=== PATIENT | female | born 2000 | race Two or more races ===

== ENCOUNTER 2024-09-30 14:28 | Emergency (ER) | payer MEDICAID, OTHER ==
[~2024-09-30] VITALS: Ht 167.6 cm; Wt 166.3 kg
--- NOTE | 2024-09-30 15:33 | ED.PDOC ---
History of Present Illness HPI Comments 24F presents to the ER w/ no prior Hx associated to the c/c of ear obstruction. Pt reports on getting a "ball stuck in my ear", yesterday morning. Denies chills, fever, N/V/D, SOB, CP or other associated symptoms, modifiers, or recent injuries at this time. Chief Complaint: Foreign Body Time Seen by MD: 15:25 Primary Care Provider: none Reviewed Notes: Nurses Notes, Medications, Allergies Allergies: Coded Allergies: NO KNOWN ALLERGIES (Unverified , 09/30/24) Information Source: Patient Mode of Arrival: Ambulatory Severity: Moderate Timing: Hours Duration: Since onset, Hours Prehospital treatment: None Past Medical History PAST MEDICAL HISTORY: Denies Surgical History: Denies all surgeries NEWS CONTENT SPECIALIST History: No Pertinent NEWS CONTENT SPECIALIST History Family History Family History: Reviewed,noncontributory to illness, Unknown Social History Smoker: Non-Smoker Alcohol: Denies ETOH Use Drugs: Denies Drug Use Lives In: Home Constitutional: reports: others ("ball stuck in ear"); denies: chills, diaphoresis, fatigue, fever, malaise, sweats, weakness EENTM: denies: blurred vision, double vision, ear bleeding, ear discharge, ear drainage, ear pain, ear ringing, eye pain, eye redness, hearing loss, mouth pain, mouth swelling, nasal discharge, nose bleeding, nose congestion, nose pain, photophobia, tearing, throat pain, throat swelling, voice changes, others Respiratory: denies: cough, hemoptysis, orthopnea, SOB at rest, shortness of breath, SOB with excertion, stridor, wheezing, others Cardiovascular: denies: chest pain, dizzy spells, diaphoresis, Dyspnea on exertion, edema, irregular heart beat, left arm pain, lightheadedness, palpitations, PND, syncope, others Gastrointestinal: denies: abdomen distended, abdominal pain, blood streaked bowels, constipated, diarrhea, dysphagia, difficulty swallowing, hematemesis, melena, nausea, poor appetite, poor fluid intake, rectal bleeding, rectal pain, vomiting, others Genitourinary: denies: abnormal vagina bleeding, burning, dyspareunia, dysuria, flank pain, frequency, hematuria, incontinence, pain, , vagina discharge, urgency, others Neurological: denies: dizziness, fainting, headache, left sided numbness, left sided weakness, numbness, paresthesia, pre-existing deficit, right sided numbness, right sided weakness, seizure, speech problems, tingling, tremors, weakness, others Musculoskeletal: denies: back pain, gout, joint pain, joint swelling, muscle pain, muscle stiffness, neck pain, others Integumetry: denies: bruises, change in color, change in hair/nails, dryness, laceration, lesions, lumps, rash, wounds, others Allergic/Immunocompromised: denies: Difficulty Healing, Frequent Infections, Hives, Itching, others Hematologic/Lymphatic: denies: anemia, blood clots, easy bleeding, easy bruising, swollen glands, others Endocrine: denies: excessive hunger, excessive sweating, excessive thirst, excessive urination, flushing, intolerance to cold, intolerance to heat, unexplained weight gain, unexplained weight loss, others Psychiatric: denies: anxiety, bipolar disorder, depression, hopeless, panic disorder, schizophrenia, sleepless, suicidal, others All Other Systems: Reviewed and Negative Physical Exam General Appearance: Mild Distress, Normal HEENT: Normal ENT Inspection, Pharynx Normal, TMs Normal Neck: Full Range of Motion, Non-Tender, Normal, Normal Inspection Respiratory: Chest Non-Tender, Lungs Clear, No Accessory Muscle Use, No Respiratory Distress, Normal Breath Sounds Cardiovascular: No Edema, No JVD, No Murmur, No Gallop, Normal Peripheral Pulses, Regular Rate/Rhythm Breast Exam: Deferred Gastrointestinal: No Organomegaly, Non Tender, No Pulsatile Mass, Normal Bowel Sounds, Soft Genitalia: Deferred Pelvic: Deferred Rectal: Deferred Extremities: No calf tenderness, Normal capillary refill, Normal inspection, Normal range of motion, Non-tender, No pedal edema Musculoskeletal : Apperance: Normal Neurologic: Alert, oral surgeon II-XII nml as Tested, No Motor Deficits, Normal Affect, Normal Mood, No Sensory Deficits Cerebellar Function: Normal Reflexes: Normal Skin: Dry, Normal Color, Warm Peripheral Pulses: 3+ Radial (R), 3+ Radial (L) Lymphatic: No Adenopathy Was a procedure done? Was a procedure done?: No Differential Dx Considerations may include: Foreign body Wax X-Ray, Labs, Meds, VS Vital Signs Date Time Temp Pulse Resp B/P (MAP) Pulse Ox O2 Delivery O2 Flow Rate FiO2 11/10/24 15:34 98.1 80 16 124/72 (89) 99 98.1 09/30/24 15:34 80 16 99 Room Air 09/30/24 14:55 98.9 83 20 155/98 (117) 97 Patient alert. Came in because his possible cotton in her right ear. Vitals stable. Answering all questions. Examined the right ear does not show any foreign body. Was able to flush the wax. Patient states that she is feeling much better. Explained to the patient the procedure. Was told to follow up with her primary care physician. Was told to come back if there is any problem. Time of 1ST Reevaluation: 16:06 Reevaluation 1ST: Improved Patient Education/Counseling: Diagnosis, Treatment, Prognosis Family Education/Counseling: No Family Present Departure 1 Departure Time of Disposition: 16:10 Impression: Primary Impression: Foreign body sensation in ear canal Disposition: 01 HOME / SELF CARE / HOMELESS Condition: Good Discharged With: Self Critical Care Note Critical Care Time?: No Stability Stability form required: No Heart Score Heart Score: Heart Score Response (Comments) Value History N/A 0 EKG N/A 0 Age N/A 0 Risk Factors N/A 0 Troponin N/A 0 Total 0 I personally scribed for VERONIKA NINO MD ([email or web address]) on 09/30/24 at 15:33. Electronically submitted by Oneil Rockwell ([email or web address]). VERONIKA NINO MD Sep 30, 2024 15:33
[2024-09-30 15:34] VITALS: BP 124/72; PULSE 80; RESP 16; TEMP 98.1; O2SAT 99
== END 2024-09-30 16:29 | disposition home or self-care (01) ==
LOC: ER 14:28
DX: S00.451A Superficial foreign body of right ear, initial encounter (principal); X58.XXXA Exposure to other specified factors, initial encounter; Y93.89 Activity, other specified; Y92.89 Other specified places as the place of occurrence of the external cause; Y99.8 Other external cause status

== ENCOUNTER 2025-02-04 15:29 | Inpatient (IN) | payer MEDICAID ==
[~2025-02-04] VITALS: Ht 170.2 cm; Wt 163.6 kg
--- NOTE | 2025-02-04 15:39 | ED.PDOC ---
HPI Comments 24 y.o female presents to the ED via EMS for a chief complaint of left sided chest pain associated with nausea that started 3 weeks ago. Patient reports pain is intermittent, described as sharp and rating a 10/10 when presented this morning. Patient reports upon ED arrival, pain presented once again, now rating a 7/10 and is non radiating. Patient denies any SOB, fever, chills, nausea, vomiting, leg swelling or calf pain. She admits to marijuana and alcohol use, but none recently. She denies any medical, surgical history or allergies. Chief Complaint: Chest Pain Time Seen by MD: 15:31 Primary Care Provider: none Reviewed Notes: Nurses Notes, Medications, Allergies Allergies: Coded Allergies: NO KNOWN ALLERGIES (Unverified , 09/30/24) Information Source: Patient, Emergency Med Personnel Mode of Arrival: EMS Severity: Moderate Timing: Weeks (3) Duration: Intermittent Prehospital treatment: 12 Lead EKG, Accucheck (128), Aquaculture Farm Manager Location: Chest (L) Radiation: No Radiation Quality: Sharp Onset: At Rest Cardiac Risk Factors: None PE Risk Factors: None History of: None Modifying Factors: Nothing Associated Signs and Symptoms: N/V (nausea only ) Past Medical History PAST MEDICAL HISTORY: Denies Surgical History: Denies all surgeries ELECTRIC WELDER History: No Pertinent ELECTRIC WELDER History Family History Family History: Family hx of DM Social History Smoker: Non-Smoker Alcohol: Occasionally Drugs: Marijuana Lives In: Home Constitutional: denies: chills, diaphoresis, fatigue, fever, malaise, sweats, weakness, others EENTM: denies: blurred vision, double vision, ear bleeding, ear discharge, ear drainage, ear pain, ear ringing, eye pain, eye redness, hearing loss, mouth pain, mouth swelling, nasal discharge, nose bleeding, nose congestion, nose pain, photophobia, tearing, throat pain, throat swelling, voice changes, others Respiratory: denies: cough, hemoptysis, orthopnea, SOB at rest, shortness of breath, SOB with excertion, stridor, wheezing, others Cardiovascular: reports: chest pain; denies: dizzy spells, diaphoresis, Dyspnea on exertion, edema, irregular heart beat, left arm pain, lightheadedness, palpitations, PND, syncope, others Gastrointestinal: reports: nausea; denies: abdomen distended, abdominal pain, blood streaked bowels, constipated, diarrhea, dysphagia, difficulty swallowing, hematemesis, melena, poor appetite, poor fluid intake, rectal bleeding, rectal pain, vomiting, others Genitourinary: denies: abnormal vagina bleeding, burning, dyspareunia, dysuria, flank pain, frequency, hematuria, incontinence, pain, , vagina discharge, urgency, others Neurological: denies: dizziness, fainting, headache, left sided numbness, left sided weakness, numbness, paresthesia, pre-existing deficit, right sided numbness, right sided weakness, seizure, speech problems, tingling, tremors, weakness, others Musculoskeletal: denies: back pain, gout, joint pain, joint swelling, muscle pain, muscle stiffness, neck pain, others Integumetry: denies: bruises, change in color, change in hair/nails, dryness, laceration, lesions, lumps, rash, wounds, others Allergic/Immunocompromised: denies: Difficulty Healing, Frequent Infections, Hives, Itching, others Hematologic/Lymphatic: denies: anemia, blood clots, easy bleeding, easy bruising, swollen glands, others Endocrine: denies: excessive hunger, excessive sweating, excessive thirst, excessive urination, flushing, intolerance to cold, intolerance to heat, unexplained weight gain, unexplained weight loss, others Psychiatric: denies: anxiety, bipolar disorder, depression, hopeless, panic disorder, schizophrenia, sleepless, suicidal, others All Other Systems: Reviewed and Negative Physical Exam General Appearance: Moderate Distress, Obese HEENT: Normal ENT Inspection, Pharynx Normal, TMs Normal Neck: Full Range of Motion, Non-Tender, Normal, Normal Inspection Respiratory: Chest Non-Tender, Lungs Clear, No Accessory Muscle Use, No Respiratory Distress, Normal Breath Sounds Cardiovascular: No Edema, No JVD, No Murmur, No Gallop, Normal Peripheral Pulses, Regular Rate/Rhythm Breast Exam: Deferred Gastrointestinal: No Organomegaly, Non Tender, No Pulsatile Mass, Normal Bowel Sounds, Soft Genitalia: Deferred Pelvic: Deferred Rectal: Deferred Extremities: No calf tenderness, Normal capillary refill, Normal inspection, Normal range of motion, Non-tender, No pedal edema Musculoskeletal : Apperance: Normal Neurologic: Alert, tissue rewinder II-XII nml as Tested, No Motor Deficits, Normal Affect, Normal Mood, No Sensory Deficits Cerebellar Function: Normal Reflexes: Normal Skin: Dry, Normal Color, Warm Lymphatic: No Adenopathy EKG EKG : Pulse Rate (adult): 85 [place]: Normal Cardiac Rhythm: NSR ST: Nonsp Was a procedure done? Was a procedure done?: No CP Differential Dx Differential Diagnosis: N/A Differential Diagnosis: Angina, Chest Wall Pain, Cholelithiasis, Costochondritis, Esophageal reflux/spasm, Gastritis, Pericarditis X-Ray, Labs, Meds, VS Vital Signs Date Time Temp Pulse Resp B/P (MAP) Pulse Ox O2 Delivery O2 Flow Rate FiO2 02/04/25 15:42 89 02/04/25 15:36 98.3 85 20 153/100 (117) 99 98.3 Lab Test 02/04/25 16:32 02/04/25 15:35 Range/Units Troponin I High Sensitivity < 3 L < 3 L </=34 ng/L White Blood Count 6.5 4.4-10.8 10^3/uL Red Blood Count 4.40 4.0-5.20 10^6/uL Hemoglobin 13.6 12.2-16.2 g/dL Hematocrit 39.7 36.0-46.0 % Mean Corpuscular Volume 90.2 80.0-100.0 fL Mean Corpuscular Hemoglobin 31.0 28.0-32.0 pg Mean Corpuscular Hemoglobin Concent 34.3 32.0-36.0 g/dL Red Cell Distribution Width 13.2 11.8-14.3 % Platelet Count 299 140-450 10^3/uL Mean Platelet Volume 8.6 6.9-10.8 fL Neutrophils (%) (Auto) 61.7 37.0-80.0 % Lymphocytes (%) (Auto) 28.3 10.0-50.0 % Monocytes (%) (Auto) 7.8 0.0-12.0 % Eosinophils (%) (Auto) 1.2 0.0-7.0 % Basophils (%) (Auto) 1.0 0.0-2.0 % Neutrophils # (Auto) 4.0 1.6-8.6 10 ^3/uL Lymphocytes # (Auto) 1.8 0.4-5.4 10 ^3/uL Monocytes # (Auto) 0.5 0-1.3 10 ^3/uL Eosinophils # (Auto) 0.1 0-0.8 10 ^3/uL Basophils # (Auto) 0.1 0-0.2 10 ^3/uL Nucleated Red Blood Cells 0.1 % D-Dimer, Quantitative 0.41 0.0-0.49 mg/L FEU Sodium Level 138 136-145 mmol/L Potassium Level 4.3 3.5-5.1 mmol/L Chloride Level 104 98-107 mmol/L Carbon Dioxide Level 26 20-31 mmol/L Anion Gap 8 5-15 Blood Urea Nitrogen 12 9-23 mg/dL Creatinine 1.00 0.550-1.02 mg/dL Glomerular Filtration Rate Calc 80 >90 mL/min BUN/Creatinine Ratio 12.0 10.0-20.0 Serum Glucose 96 74-106 mg/dL Calcium Level 9.3 8.7-10.4 mg/dL Chest x-ray IMPRESSION: 1. Normal chest x-ray. The patient's CBC is within normal limits The chemistry panel is within normal limits The D-dimer is within normal limits At this time, the patient is being admitted to the hospitalist The patient continues to have persistent chest pain Images Reviewed?: Images reviewed and evaluated by me Time of 1ST Reevaluation: 15:36 Reevaluation 1ST: Unchanged Patient Education/Counseling: Diagnosis, Treatment, Prognosis Family Education/Counseling: No Family Present Departure 1 Departure Time of Disposition: 18:34 Impression: Primary Impression: Acute chest pain Additional Impression: Acute coronary syndrome Disposition: ADMITTED INPATIENT [facility]mit to: [facility] Condition: Fair Critical Care Note Critical Care Time?: No Stability Stability form required: Yes Unstable for transfer: Telemetry monitoring (Telemetry monitoring required), ED Physician Assesment (Clinical assesment) Heart Score Heart Score: Heart Score Response (Comments) Value History Slightly Suspicious 0 EKG Normal 0 Age <45 0 Risk Factors No known risk factors 0 Troponin Normal limit 0 Total 0 I personally scribed for DON PARSONS MD ([email or web address]) on 02/04/25 at 15:39. Electronically submitted by Sandra Weaver ([email or web address]). I personally scribed for DON PARSONS MD ([email or web address]) on 02/04/25 at 18:16. Electronically submitted by Sandra Weaver ([email or web address]). DON PARSONS MD Feb 04, 2025 15:39
[2025-02-04 15:58] LABS: Basophils # (auto) 0.1 10 ^3/uL (0-0.2); Eosinophils # (auto) 0.1 10 ^3/uL (0-0.8); Eosinophils % (auto) 1.2 % (0.0-7.0); Hematocrit 39.7 % (36.0-46.0); Hemoglobin 13.6 g/dL (12.2-16.2); Lymphocytes # (auto) 1.8 10 ^3/uL (0.4-5.4); Lymphocytes % (auto) 28.3 % (10.0-50.0); Mean Corpuscular Hgb Conc. 34.3 g/dL (32.0-36.0); Mean Corpuscular Volume 90.2 fL (80.0-100.0); Monocytes # (auto) 0.5 10 ^3/uL (0-1.3); Monocytes % (auto) 7.8 % (0.0-12.0); Neutrophils % (auto) 61.7 % (37.0-80.0); Nucleated Red Blood Cells % 0.1 %; Platelet Count (auto) 299 10^3/uL (140-450); Red Cell Distribution Width 13.2 % (11.8-14.3); White Blood Cell 6.5 10^3/uL (4.4-10.8)
[2025-02-04 16:08] LABS: Chloride 104 mmol/L (98-107); Potassium 4.3 mmol/L (3.5-5.1); Sodium 138 mmol/L (136-145)
[2025-02-04 16:09] LABS: Anion Gap 8 (5-15); Calcium 9.3 mg/dL (8.7-10.4); Carbon Dioxide 26 mmol/L (20-31)
[2025-02-04 16:14] LABS: Blood Urea Nitrogen 12 mg/dL (9-23); Glucose 96 mg/dL (74-106)
--- NOTE | 2025-02-04 16:24 | DVH ---
Chest x-ray Technique: AP portable CLINICAL INDICATION: Chest pain FINDINGS: Heart size is normal. No infiltrates or effusions. No bony thoracic abnormalities. IMPRESSION: 1. Normal chest x-ray.
[2025-02-04] MEDS ORDERED: MELATONIN 5 MG TAB PO PRN (21:00)
[2025-02-04] MEDS ORDERED: ACETAMINOPHEN 325 MG TAB PO PRN (21:00)
[2025-02-04] MEDS ORDERED: ONDANSETRON HCL 4 MG/2 ML VIAL IV PRN (21:00)
[2025-02-04] MEDS ORDERED: HYDROcodone-ACET 5/325MG TAB PO PRN (21:00)
[2025-02-04] MEDS ORDERED: MORPHINE SULFATE INJ 2 MG/ml SYRG IV PRN (21:15)
[2025-02-04] MEDS ORDERED: hydrALAZINE HCL 20 MG/ML VL IV PRN (21:15)
[2025-02-04] MEDS ORDERED: NITROGLYCERIN 0.4 MG SL TAB SL PRN (21:15)
[2025-02-04] MEDS: ASPirin 81 mg TAB PO ONE (23:48)
[2025-02-04] MEDS: ATORVASTATIN 20 MG TAB PO SCH (23:48)
[2025-02-04] MEDS: FAMOTIDINE 20 MG TAB PO SCH (23:48)
[2025-02-05] VITALS (8 sets, daily range): BP systolic 113–146; BP diastolic 53–90; PULSE 61–78; RESP 16–20; TEMP 98–98.6; O2SAT 95–100
--- NOTE | 2025-02-05 00:43 | DVHHP2 ---
Admitting Diagnosis: Chest pain rule out ACS History of Present Illness History Source: Patient Exam Limitations: No limitations HPI Ms. Yael Cárdenas is a 24 y.o female with no reported medical history who presents with a chief complaint of left sided chest pain associated with nausea that started 3 weeks ago. Patient reports pain is intermittent, described as sharp and rating a 10/10 when presented this morning. . Patient denies any SOB, fever, chills, nausea, vomiting, leg swelling or calf pain. Patient endorses she has a history of anxiety disorder when she was 14 and was told she was bipolar, was taking medications which she stopped taking on her own. Patient reports she has had insomnia issues as well but has changed her diet and started exercising and has been sleeping better. Patient reports palpitations along with chest pain and a burning sensation. Patient states her watch read her heart rate in the 130's briefly and then was down to the 90-100's . Patient currently denies any chest pain, palpitations, SI, dyspnea. Patient admitted for further evaluation and treatment. Home Meds No Active Prescriptions or Reported Meds Past Medical History Cardiac: No pertinent Hx Pulmonary: No pertinent Hx Central Nervous System: No pertinent Hx GI: No pertinent Hx Hemotology/Oncology: No pertinent Hx Hepatobiliary: No pertinent Hx Psychiatric: Anxiety, Bipolar, Other (insominia) Musculoskeletal: No pertinent Hx Rheumotologic: No pertinent Hx Infectious Disease: No peritnent Hx ENT: No pertinent Hx Renal/: No pertinent Hx Endocrine: No pertinent Hx Dermatology: No pertinent Hx Smoker: Quit (x 2months ago) Alocohol: Occassional Drugs: Marijuana Domestic Violence: Neg Review of Systems Constitutional: No symptom reported Ears, Nose, & Throat: No symptom reported Eyes: No symptom reported Pulmonary/Respiratory: No symptom reported Cardiovascular: Chest Pain, Palpitations Gastrointestinal: No symptom reported Genitourinary: No symptom reported Musculoskeletal: No symptom reported Skin: No symptom reported Psychiatric: No symptom reported Endocrine: No symptom reported Hemotologic/Lymphatic: No symptom reported H&P Exam Vital Signs Vital Signs Date Time Temp Pulse Resp B/P (MAP) Pulse Ox O2 Delivery O2 Flow Rate FiO2 02/04/25 18:35 85 02/04/25 15:36 98.3 20 153/100 (117) 99 98.3 General Appeara: Well developed, Well nourished, Normal Appearance Head Exam: Normal inspection Neck Exam: Normal inspection, Non-tender, Normal alignment Eye Exam: bilateral eye Normal inspection, bilateral eye PERRL, bilateral eye EOMI Ear Exam: bilateral ear Auricle normal Nasal Exam: Normal inspection Mouth: Normal Inspection Pulmonary/Respiratory: Normal inspection, Normal breath sounds, Chest non- tender, Lungs clear Cardiovascular/Chest: Normal inspection, Regular rate, Normal Rhythm Peripheral Pulses: 2+ dorsalis pedis (R), 2+ dorsalis pedis (L), 2+ Radial (R), 2+ Radial (L) Abdominal Exam: Normal bowel sounds, Soft, No tenderness Rectal Exam: Deferred Pelvic Exam: Not done PULVERIZER FEEDER Exam: Normal hearing, Normal speech, PERRL Neuro/Mental St: Alert, Oriented Appearance: Appropriate appearance, Appropriate insight Eye contact/ Speech: Cooperative, Good eye contact, Normal speech Thoughts/Psych: Normal thought pattern Skin Exam: Normal inspection, Normal color, Warm/dry Labs/Xrays Labs Test 02/04/25 16:32 02/04/25 15:35 Range/Units Troponin I High Sensitivity < 3 L </=34 ng/L White Blood Count 6.5 4.4-10.8 10^3/uL Red Blood Count 4.40 4.0-5.20 10^6/uL Hemoglobin 13.6 12.2-16.2 g/dL Hematocrit 39.7 36.0-46.0 % Mean Corpuscular Volume 90.2 80.0-100.0 fL Mean Corpuscular Hemoglobin 31.0 28.0-32.0 pg Mean Corpuscular Hemoglobin Concent 34.3 32.0-36.0 g/dL Red Cell Distribution Width 13.2 11.8-14.3 % Platelet Count 299 140-450 10^3/uL Mean Platelet Volume 8.6 6.9-10.8 fL Neutrophils (%) (Auto) 61.7 37.0-80.0 % Lymphocytes (%) (Auto) 28.3 10.0-50.0 % Monocytes (%) (Auto) 7.8 0.0-12.0 % Eosinophils (%) (Auto) 1.2 0.0-7.0 % Basophils (%) (Auto) 1.0 0.0-2.0 % Neutrophils # (Auto) 4.0 1.6-8.6 10 ^3/uL Lymphocytes # (Auto) 1.8 0.4-5.4 10 ^3/uL Monocytes # (Auto) 0.5 0-1.3 10 ^3/uL Eosinophils # (Auto) 0.1 0-0.8 10 ^3/uL Basophils # (Auto) 0.1 0-0.2 10 ^3/uL Nucleated Red Blood Cells 0.1 % D-Dimer, Quantitative 0.41 0.0-0.49 mg/L FEU Sodium Level 138 136-145 mmol/L Potassium Level 4.3 3.5-5.1 mmol/L Chloride Level 104 98-107 mmol/L Carbon Dioxide Level 26 20-31 mmol/L Anion Gap 8 5-15 Blood Urea Nitrogen 12 9-23 mg/dL Creatinine 1.00 0.550-1.02 mg/dL Glomerular Filtration Rate Calc 80 >90 mL/min BUN/Creatinine Ratio 12.0 10.0-20.0 Serum Glucose 96 74-106 mg/dL Calcium Level 9.3 8.7-10.4 mg/dL Assessment/Plan Problem List: (1) Acute chest pain (2) Acute coronary syndrome Plan This is a 24 yo female with a reported past medical history of anxiety, bipolar disorder, and insomnia presents to the hospital with chest pain. 1. Chest pain rule out ACS 2. Anxiety disorder Plan Admit Telemetry unit Cardiology consultation, 2D echocardiogram, serial troponin levels, ASA, Statin Lipid panel Tele psych consultation Discussed all above with patient who verbalized agreement and understanding of care plan. All questions were answered. Discussed assessment and care plan with supervising MD. Plan discussed with: Patient, Other Code Visit Code Visit Total Time (mins): 45 Additional Comments Additional Comments Additional Comments Number seen and evaluated by me. I agree with the assessment and plan as outlined by my nurse practitioner. JUAN RAMON MCLEAN Feb 05, 2025 00:42 ELSIA TERAN MD Feb 07, 2025 18:16
[2025-02-05 06:00] LABS: Triglycerides 120 mg/dL (< 150)
[2025-02-05 06:01] LABS: Cholesterol 186 mg/dL (< 200); HDL Cholesterol 44 mg/dL (40-59); LDL Cholesterol 129 mg/dL (< 100)
[2025-02-05 09:44] LABS: Amphetamine Screen, Urine Neg (NEGATIVE); Barbiturate Scree,Urine Neg (NEGATIVE); Benzodiazephine Screen, Urine Neg (NEGATIVE); Cannabinoid Screen, Urine Pos (NEGATIVE); Cocaine Screen, Urine Neg (NEGATIVE); Opiate Scree,Urine Neg (NEGATIVE); Phencyclidine Screen, Urine Neg (NEGATIVE)
[2025-02-05] MEDS: ASPirin 81 mg TAB PO SCH (10:51)
--- NOTE | 2025-02-05 17:18 | DVHSR ---
APPROVED REPORT EXAM: Two-dimensional and M-mode echocardiogram with Doppler and color Doppler. Blood Pressure: 134/83 mmHg INDICATION Chest Pain RISK FACTORS Height: 67, Weight: 360 DIMENSIONS LVDd4.9 (3.8-5.7cm)LA (2D)3.9 (1.9-4.0cm)Aortic Root3.5 (2.0-3.7cm) LVDs3.5 (2.5-4.0cm)LA (MM) (1.9-4.0cm)Aortic Cusp Exc2.0 (1.5-2.0cm) EF (%) 55.0 (55-70%)Rt. Atrium4.5 (1.9-4.0cm)Asc. Aorta cm IVSd1.2 (0.7-1.1cm)RV (D) (1.8-2.4cm) PWd1.3 (0.7-1.1cm) Mitral Valve MitralMitral Stenosis E wave1.11m/sMV Mean GR.mmHg A wave0.66m/sMV Peak GR.mmHg E/A ratio1.72D MVAcm2 DECEL [id number] 1/2 [id number] IVRTmsDop MVA2.30cm2 Aortic Valve Aortic ValveAortic Stenosis V11.21m/Aris Mean GR.6mmHg V21.67m/Aris Peak GR.11mmHg LVOT Diameter2.3 (1.8-2.4cm)Doppler AVA3.01cm2 Pulmonic Valve V21.14m/s Other Information Technically limited study due to body habitus and patient position. Conclusion Grossly normal biventricular size and systolic function. LVEF 60-65%. Unable to completely assess wal l motion. Mild LVH. Normal diastolic function. Mild biatrial enlargement. No significant valvular disease. Normal IVC. No pericardial effusion. TDS.
[2025-02-06] VITALS (7 sets, daily range): BP systolic 102–132; BP diastolic 48–80; PULSE 67–88; RESP 18–20; TEMP 97.4–98.9; O2SAT 92–99
--- NOTE | 2025-02-06 10:39 | ECG ---
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
--- NOTE | 2025-02-06 13:51 | DVHINCON2 ---
DATE OF CONSULTATION: 02/05/2025 REFERRING PHYSICIAN: ____. CONSULTING PHYSICIAN: Shelli Lord MD INDICATION: Chest pain. HISTORY OF PRESENT ILLNESS: The patient is a 24-year-old female with obesity, presented to the hospital with complaints of chest pain. Described the pain as sharp and nonradiating. The patient was also complaining of some shortness of breath. Denies any diaphoresis, nausea, vomiting. The patient also gives history of on and off palpitations, heart rate at times in the 120s. RI has been ruled out with serial negative troponin. PAST MEDICAL HISTORY: Obesity. MEDICATIONS: Per med rec. ALLERGIES: No known drug allergies. PHYSICAL EXAMINATION: GENERAL: Alert and awake in no form of cardiopulmonary distress. VITAL SIGNS: Blood pressure 113/57, pulse ____, saturation ____%. HEENT: No carotid bruits. No jugular venous distention. CHEST: Bilateral air entry. CARDIOVASCULAR: Precordial and carotid pulses palpable. Normal S1 and S2. Regular rate and rhythm. EXTREMITIES: No peripheral edema. DIAGNOSTIC DATA: Troponin is negative x3. Sodium 130, potassium 4.3, creatinine is 1.0. CBC is normal. ASSESSMENT: * Chest pain atypical. Myocardial infarction has been ruled out with serial negative troponin. * Possible anxiety. * Obesity. RECOMMENDATIONS: * Continue tele monitor. * Monitor electrolytes. * Echo. * If echo unremarkable, no further inpatient cardiac workup indicated. Thank you for allowing me to participate in the care of this patient. MD LIZ Krishnan/ROGERS/LEELEE TID: [id number] RECEIPT: [id number]
--- NOTE | 2025-02-06 16:53 | DVHINCON2 ---
Date of Service if different f: Feb 06, 2025 Consultation ([facility]) Consulting Physician: LOGAN NOLAND MD Labs Laboratory Tests Test 02/04/25 15:35 02/05/25 05:20 02/05/25 08:50 02/05/25 14:39 White Blood Count 6.5 10^3/uL (4.4-10.8) Red Blood Count 4.40 10^6/uL (4.0-5.20) Hemoglobin 13.6 g/dL (12.2-16.2) Hematocrit 39.7 % (36.0-46.0) Mean Corpuscular Volume 90.2 fL (80.0-100.0) Mean Corpuscular Hemoglobin 31.0 pg (28.0-32.0) Mean Corpuscular Hemoglobin Concent 34.3 g/dL (32.0-36.0) Red Cell Distribution Width 13.2 % (11.8-14.3) Platelet Count 299 10^3/uL (140-450) Mean Platelet Volume 8.6 fL (6.9-10.8) Neutrophils (%) (Auto) 61.7 % (37.0-80.0) Lymphocytes (%) (Auto) 28.3 % (10.0-50.0) Monocytes (%) (Auto) 7.8 % (0.0-12.0) Eosinophils (%) (Auto) 1.2 % (0.0-7.0) Basophils (%) (Auto) 1.0 % (0.0-2.0) Neutrophils # (Auto) 4.0 10 ^3/uL (1.6-8.6) Lymphocytes # (Auto) 1.8 10 ^3/uL (0.4-5.4) Monocytes # (Auto) 0.5 10 ^3/uL (0-1.3) Eosinophils # (Auto) 0.1 10 ^3/uL (0-0.8) Basophils # (Auto) 0.1 10 ^3/uL (0-0.2) Nucleated Red Blood Cells 0.1 % D-Dimer, Quantitative 0.41 mg/L FEU (0.0-0.49) Sodium Level 138 mmol/L (136-145) Potassium Level 4.3 mmol/L (3.5-5.1) Chloride Level 104 mmol/L (98-107) Carbon Dioxide Level 26 mmol/L (20-31) Anion Gap 8 (5-15) Blood Urea Nitrogen 12 mg/dL (9-23) Creatinine 1.00 mg/dL (0.550-1.02) Glomerular Filtration Rate Calc 80 mL/min (>90) BUN/Creatinine Ratio 12.0 (10.0-20.0) Serum Glucose 96 mg/dL (74-106) Calcium Level 9.3 mg/dL (8.7-10.4) Triglycerides Level 120 mg/dL (< 150) Cholesterol Level 186 mg/dL (< 200) LDL Cholesterol 129 mg/dL (< 100) HDL Cholesterol 44 mg/dL (40-59) Thyroid Stimulating Hormone (TSH) 1.15 uIU/mL (0.55-4.78) Urine Opiates Screen Neg (NEGATIVE) Urine Fentanyl Screen Neg (NEGATIVE) Urine Barbiturates Screen Neg (NEGATIVE) Urine Phencyclidine Screen Neg (NEGATIVE) Urine Amphetamines Screen Neg (NEGATIVE) Urine Benzodiazepines Screen Neg (NEGATIVE) Urine Cocaine Screen Neg (NEGATIVE) Urine Cannabinoids Screen Pos (NEGATIVE) Troponin I High Sensitivity < 3 ng/L (</=34) Appetite: Good Appearance: Stated age, Groomed Psychomotor activity: WNL Behavioral: Cooperative Eye contact: Appropriate Speech: WNL Affect: Appropriate Mood: Anxious Thought processes: Linear/Goal-directed Thought content: WNL Suicidal ideations: Absent Homicidal ideations: Absent Orientation: Person, Place, Time, Situation Memory intact: Recent Intellect: Average Abstractability: WNL Concentration: Adequate Attention: Adequate Insight: Fair Vitals Vital Signs Date Time Temp Pulse Resp B/P (MAP) Pulse Ox O2 Delivery O2 Flow Rate FiO2 02/06/25 12:47 98.9 88 18 132/80 (97) 97 98.9 02/06/25 08:00 Room Air* 0 21 Current medications Current Medications Medications Dose Ordered Sig/Yaneth Route Start Time Stop Time Status Last Admin Dose Admin Ondansetron HCl 4 mg Q6HPRN PRN IV 02/04/25 21:00 Aspirin 81 mg DAILY PO 02/05/25 10:00 02/05/25 10:51 81 MG Atorvastatin Calcium 40 mg HS PO 02/04/25 22:00 02/05/25 21:32 40 MG Acetaminophen 650 mg Q6HPRN PRN PO 02/04/25 21:00 Famotidine 20 mg BID PO 02/04/25 22:00 02/05/25 21:32 20 MG Acetaminophen/ Hydrocodone Bitart 1 tab Q6HPRN PRN PO 02/04/25 21:00 Melatonin 5 mg ONCE@2200 PRN PO 02/04/25 21:00 Nitroglycerin 0.4 mg Q5MINP PRN SL 02/04/25 21:15 Morphine Sulfate 2 mg Q30M PRN IV 02/04/25 21:15 Hydralazine HCl 10 mg Q6HPRN PRN IV 02/04/25 21:15 Medication adjusted: Yes Diagnosis: unspecified mood disorder, unspecified anxiety disorder Plan : pt denies si/hi and able to discharge home and follow up with outpatient services. Recommend to restart zoloft 50mg po daily. Abilify 5mg po qhs. History of Present Illness Reason for Consult : anxiety HPI : This is a 24-year-old female with history of obesity and anxiety, presented to the hospital with chest pain. Patient is evaluated via Telepsychiatry. On evaluation, she reports feeling better. She does report history of anxiety and stopped her medications about two years ago. She reports anxiety, with no known triggers. Anxiety can be intense, last for minutes an go away or she can feel anxious thought the day. She reports the past, had fears of being outside, such as movie theaters. She reports since motherhood, able to manage anxiety better, but recent worries about her health is making her more anxious. She also reports older brother last year from heart attack and father also from the same thing three years ago. She was also using marijuana in the past to cope with her anxiety but stopped two months ago. She does feel anxious. She denies feeling depressed, hopelessness or anhedonia. She really enjoys being a mom and looking after her twin daughters. She denies any suicidal or homicidal ideation. She denies any auditory or visual hallucinations or paranoia thoughts. She reports in her teens, would become very angry, punching and breaking things as as a teen. She does get irritable and anger outbursts, but less severe. She no longer reacts violently or aggressive due to being a mom. Past Psychiatric History : She reports prior psychiatric hospitalization in her teens no recent hospitalization as an adult. She does not have current outpat ient follow up. She had a therapist two years ago. She had prior use of Zoloft and Abilify (unknown dose) which were helpful for her symptoms but she stopped 2 years ago. She denies any suicide attempts. No known trauma history Past Medical History : Obesity Social History : she reports living with partner and her two daughters. She is currently unemployed, but looking for work. She was using marijuana and nicotine but stopped two months ago. she denies any other history of substance use She reports family history: mom with bipolar disorder and anxiety. one brother with schizophrenia who is currently institutionalized. She reports older sister with bipolar disorder. JERSON HERCULES DNP Feb 06, 2025 16:52
--- NOTE | 2025-02-06 16:57 | DVHPN2 ---
Subjective Patient denies any chest pain currently waiting for psych evaluation for history of anxiety and bipolar disorder. 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 Medications Current Medications Medications Dose Ordered Sig/Yaneth Route Start Time Stop Time Status Last Admin Dose Admin Ondansetron HCl 4 mg Q6HPRN PRN IV 02/04/25 21:00 Aspirin 81 mg DAILY PO 02/05/25 10:00 02/05/25 10:51 81 MG Atorvastatin Calcium 40 mg HS PO 02/04/25 22:00 02/05/25 21:32 40 MG Acetaminophen 650 mg Q6HPRN PRN PO 02/04/25 21:00 Famotidine 20 mg BID PO 02/04/25 22:00 02/05/25 21:32 20 MG Acetaminophen/ Hydrocodone Bitart 1 tab Q6HPRN PRN PO 02/04/25 21:00 Melatonin 5 mg ONCE@2200 PRN PO 02/04/25 21:00 Nitroglycerin 0.4 mg Q5MINP PRN SL 02/04/25 21:15 Morphine Sulfate 2 mg Q30M PRN IV 02/04/25 21:15 Hydralazine HCl 10 mg Q6HPRN PRN IV 02/04/25 21:15 Laboratory Results Laboratory Tests 02/04/25 15:35 Assessment/Plan Assessment/Plan 24-year-old young female with a known history of morbid obesity class three, previous history of anxiety and bipolar disorder presented to the hospital with chest pain found to have 1. Chest pain CO ruled out 2. Anxiety and bipolar disorder, wait for psych well 3. Morbid obesity class three -diet weight reduction and exercise counseling, tele psych evaluation, discharge plan Plan discussed with: Patient Date of Service: Feb 06, 2025 Billing Provider: ELISA TERAN MD Common Visit Codes: NOT BILLABLE ELISA TERAN MD Feb 06, 2025 16:57
[2025-02-07 10:24] LABS: Hepatitis B Surface Antigen Negative (Negative); Hepatitis C Antibody Negative (Negative)
--- NOTE | 2025-02-07 17:42 | DVHDS2 ---
Discharge Summary Date of Admission Feb 04, 2025 at 21:02 Date of Discharge: Feb 06, 2025 Labs/Diagnostic Data: Laboratory Results Test 02/05/25 14:39 02/05/25 08:50 02/05/25 05:20 02/04/25 15:35 Troponin I High Sensitivity < 3 ng/L (</=34) Urine Opiates Screen Neg (NEGATIVE) Urine Fentanyl Screen Neg (NEGATIVE) Urine Barbiturates Screen Neg (NEGATIVE) Urine Phencyclidine Screen Neg (NEGATIVE) Urine Amphetamines Screen Neg (NEGATIVE) Urine Benzodiazepines Screen Neg (NEGATIVE) Urine Cocaine Screen Neg (NEGATIVE) Urine Cannabinoids Screen Pos (NEGATIVE) Triglycerides Level 120 mg/dL (< 150) Cholesterol Level 186 mg/dL (< 200) LDL Cholesterol 129 mg/dL (< 100) HDL Cholesterol 44 mg/dL (40-59) Thyroid Stimulating Hormone (TSH) 1.15 uIU/mL (0.55-4.78) Hepatitis B Surface Antigen Negative (Negative) Hepatitis C Antibody Negative (Negative) White Blood Count 6.5 10^3/uL (4.4-10.8) Red Blood Count 4.40 10^6/uL (4.0-5.20) Hemoglobin 13.6 g/dL (12.2-16.2) Hematocrit 39.7 % (36.0-46.0) Mean Corpuscular Volume 90.2 fL (80.0-100.0) Mean Corpuscular Hemoglobin 31.0 pg (28.0-32.0) Mean Corpuscular Hemoglobin Concent 34.3 g/dL (32.0-36.0) Red Cell Distribution Width 13.2 % (11.8-14.3) Platelet Count 299 10^3/uL (140-450) Mean Platelet Volume 8.6 fL (6.9-10.8) Neutrophils (%) (Auto) 61.7 % (37.0-80.0) Lymphocytes (%) (Auto) 28.3 % (10.0-50.0) Monocytes (%) (Auto) 7.8 % (0.0-12.0) Eosinophils (%) (Auto) 1.2 % (0.0-7.0) Basophils (%) (Auto) 1.0 % (0.0-2.0) Neutrophils # (Auto) 4.0 10 ^3/uL (1.6-8.6) Lymphocytes # (Auto) 1.8 10 ^3/uL (0.4-5.4) Monocytes # (Auto) 0.5 10 ^3/uL (0-1.3) Eosinophils # (Auto) 0.1 10 ^3/uL (0-0.8) Basophils # (Auto) 0.1 10 ^3/uL (0-0.2) Nucleated Red Blood Cells 0.1 % D-Dimer, Quantitative 0.41 mg/L FEU (0.0-0.49) Sodium Level 138 mmol/L (136-145) Potassium Level 4.3 mmol/L (3.5-5.1) Chloride Level 104 mmol/L (98-107) Carbon Dioxide Level 26 mmol/L (20-31) Anion Gap 8 (5-15) Blood Urea Nitrogen 12 mg/dL (9-23) Creatinine 1.00 mg/dL (0.550-1.02) Glomerular Filtration Rate Calc 80 mL/min (>90) BUN/Creatinine Ratio 12.0 (10.0-20.0) Serum Glucose 96 mg/dL (74-106) Calcium Level 9.3 mg/dL (8.7-10.4) Other Laboratory Tests 02/04/25 15:35 Brief Hx & Hospital Course: 44-year-old female with a known history of anxiety disorder bipolar disorder currently not on any meds for last 2 years, presented to the hospital with the chest pain which was found to be atypical. Patient troponins were negative. Patient also complaining of her anxiety disorder and not on any medications. Tele psych was consulted patient was not suicidal or homicidal. They recommended to start the patient on previous medication continue Zoloft and Abilify. Patient left against medical advice before completion of workup and treatment. Condition at Discharge: Undetermined Final Diagnosis/Problems List Chest pain AK ruled out Anxiety disorder Morbid obesity class 3 Discharge Disposition: AMA SNF Discharge Will this Physician continue t: No Discharge Statement: "Patient was advised to return to the ER or call 911 if any headaches, dizziness, shortness of breath, chest pain, abdominal pain, bleeding, fevers, or worsening of medical condition. Patient was counseled about treatment plan, medications, possible side effects, patientverbalized understanding. All questions were answered to the best of my ability. This discharge took greater then 30 minutes in planning, reviewing documentation, counseling the patient, and discussing with other team members." ASSESSMENT ASSESSMENT Assessment Date of Service: Feb 06, 2025 Billing Provider: ELISA TERAN MD Common Visit Codes: NOT BILLABLE ELISA TERAN MD Feb 07, 2025 17:42
== END 2025-02-06 20:40 | disposition left against medical advice (07) | DRG 203 ==
LOC: EDBD 15:29 → ER 15:29 → OVERFLOW 21:02 → TELE-WESTW 02-05 21:42
PROVIDERS: ADMIT Nurse Practitioner Family; ATTEND Nurse Practitioner Family
DX: R07.89 Other chest pain (principal); Z68.43 Body mass index [BMI] 50.0-59.9, adult; E66.813 Obesity, class 3; F31.9 Bipolar disorder, unspecified; F41.9 Anxiety disorder, unspecified; G47.00 Insomnia, unspecified; Z63.4 Disappearance and death of family member; Z56.0 Unemployment, unspecified; Z81.8 Family history of other mental and behavioral disorders; Z82.49 Family history of ischemic heart disease and other diseases of the circulatory system; Z83.3 Family history of diabetes mellitus; Z87.891 Personal history of nicotine dependence
CPT/HCPCS: 36415; 71045; 80048; 80061; 80307; 84443; 84484; 85025; 85379; 86803; 87340; 93005; 93306; G0378